=== PATIENT | female | born 1985 | race Caucasian/White ===

== ENCOUNTER 2021-10-15 23:42 | Emergency (ER) | payer MEDICAID ==
[~2021-10-15] VITALS: Ht 175.3 cm; Wt 112.9 kg
[2021-10-15 23:48] VITALS: BP 137/77
== END 2021-10-16 02:22 | disposition left against medical advice (07) ==
LOC: EDH 23:42
DX: O20.9 Hemorrhage in early pregnancy, unspecified (principal); Z53.21 Procedure and treatment not carried out due to patient leaving prior to being seen by health care provider; Z3A.10 10 weeks gestation of pregnancy